=== PATIENT | female | born 1935 | race Caucasian/White ===

== ENCOUNTER → 2016-12-20 | Outpatient (CLI) | payer OTHER ==
[~2016-12-20] MED LIST: ACETAMINOPHEN PO; ALLOPURINOL300 MG PO; ANTACID650 MG PO; ANTIBIOTIC; ARTIFICIAL TEAR15 M4 OU; ASPIRIN81 M2 PO; ATARAX PO; ATORVASTATIN CA10 MG PO; AZO; AZO URINARY TR1 EACH PO; AZO1 EACH; BACITRACIN OP3.5 GM TOP; BENADRYL25 M1 PO; DICLOFENAC SOD100 MG PO; DIFLUCAN; DIFLUCAN PO; DIFLUCAN100 MG PO; DIPHENHYDRAMINE50 M1 PO; DOCUSATE SODIU100 MG PO; ELMIRON100 MG PO; EVISTA60 M1 PO; FAMOTIDINE PO; FERROUS SULFAT325 MG; FERROUS SULFATE PO; FIBER CAP PO; FLORASTOR250 M1 PO; FOLIC ACID1 MG PO; GLUCOPHAGE500 M1 PO; HYDRALAZINE HCL25 MG PO; HYDROCHLOROTHIA25 MG PO; IRON TABLETS1 TAB PO; LASIX PO; LASIX20 MG PO; LIORESAL10 MG PO; LIPITOR PO; LOTREL PO; MAPAP500 M1 PO; MAXIPIME2 GM INJ; METRONIDAZOLE250 MG PO; MYRBETRIQ50 MG PO; NASONEX17 GM; NORVASC2.5 MG PO; ONDANSETRON HCL4 MG PO; PREDNISONE10 MG PO; PRILOSEC20 M1 PO; SYNTHROID125 PO; TOPROL XL 50 MG50 MG PO; TOPROL XL100 MG PO; TRAMADOL HCL50 M1 PO; ZYRTEC PO
[2016-12-20 15:34] LABS: HEMATOCRIT 34.2 % (35.0-45.0); HEMOGLOBIN 11.2 gm/dL (12.0-16.0); MEAN CELL VOLUME 92.1 FL (83-96); MEAN CORPUSCULAR HEMOGLOBIN 30.2 PG (28-34); MEAN CORPUSCULAR HGB CONC 32.8 g/dL (30-36); MEAN PLATELET VOLUME 8.1 FL (6.5-11.5); RED BLOOD COUNT 3.72 X10e (3.90-5.30); RED CELL DISTRIBUTION WIDTH 17.2 % (11.0-15.5); WHITE BLOOD COUNT 11.9 X10e3 (4.0-10.5)
[2016-12-20 15:50] LABS: URINE APPEARANCE CLOUDY; URINE BILIRUBIN NEG (NEG); URINE BLOOD TRACE (NEG); URINE COLOR YELLOW; URINE GLUCOSE NEG (NEG); URINE KETONE NEG (NEG); URINE LEUKOCYTE ESTERASE 2+ (NEG); URINE NITRATE NEG (NEG); URINE PH 5.5 (5-8); URINE PROTEIN 3+ (NEG); URINE SPECIFIC GRAVITY 1.022 (1.003-1.035); URINE UROBILINOGEN 0.2 MG/DL (NEG)
[2016-12-20 15:53] LABS: URINE BACTERIA AUWI NEG (NEGATIVE); URINE SOURCE CLEAN CATCH; URINE SQUAMOUS EPITHELIAL CELL NONE SEEN /[HPF]; UWBCS1 AUWI 200-300 (0-5)
[2016-12-20 16:20] LABS: BUN/CREATININE RATIO 17.61; CREATININE SERUM 2.1 mg/dL (0.6-1.4); PHOSPHOROUS 3.9 mg/dL (2.5-4.6); POTASSIUM 3.8 mmol/L (3.5-5.1)
[2016-12-25 10:52] LABS: CALCIUM (PTHINTACT) 9.5 mg/dL (8.6-10.4)
== END | disposition home or self-care (01) ==
LOC: CLAB 14:56
PROVIDERS: Internal Medicine Nephrology
DX: I12.9 Hypertensive chronic kidney disease with stage 1 through stage 4 chronic kidney disease, or unspecified chronic kidney disease (principal); N18.4 Chronic kidney disease, stage 4 (severe); D63.1 Anemia in chronic kidney disease
CPT/HCPCS: 80048; 81003; 82310; 82728; 83540; 83550; 83970; 84100; 85027; 87086

== ENCOUNTER → 2017-02-09 | Day surgery (SDC) | payer OTHER ==
--- NOTE | ~2017-02-09 | OR ---
Unit #: [id number] #: [id number] Patient: LV PASTRANA [id number] [address] [place], [place] [address] [id number] O MR#: [id number] NAME: LV PASTRANA ROOM: Date of Procedure: 02/09/2017 Admission Date: 02/09/2017 Surgeon: Jose Carlos Cannon M.D. : 1935 Attending Physician: Jose Carlos Cannon M.D. Primary Care Physician: Kenny Gallagher M.D. OPERATIVE REPORT PROCEDURES PERFORMED Cystoscopy, bilateral stent exchange, right retrograde pyelogram. DESCRIPTION OF PROCEDURE After informed consent, she was taken to the operating room, placed in general anesthetic, positioned lithotomy. Her vagina and perineum were prepped and draped in the usual sterile fashion. Cystoscopy was performed showing a normal urethra. She had a stent exiting the right and left ureteral orifices. The stents did have film on them, that was somewhat of a brownish yellow film. The entire bladder was inspected, there were no tumors, no stones. Her bladder capacity was significantly diminished. The left stent was removed and exchanged initially under fluoroscopy without difficulty. I placed an 8 x 22 stent on the left. There was good coil in the bladder and collecting system. I then removed her right stent and eventually had to put a Pollack and shoot a retrograde pyelogram to confirm placement. It was more difficult placing the right stent and placed a 7 x 22 stent in the right. Hopefully, this will prolong her time to needing a stent change in the future. Her bladder was drained. She was taken to recovery. She will be discharged home, undergo stent exchange in approximately 3 to 4 months or sooner, if need be. Dictated by... Arpit Galvez/kinsey TD: 02/10/2017 13:24 JOB #: [id number] OPERATIVE REPORT Page 1 of 1 X Jose Carlos Cannon MD X PROCEDURE OPERATIVE NOTE
[2017-02-09 15:28] LABS: BASOPHIL% 0.2 % (0-2.5); EOSINOPHIL# 0.8 X10e3 (0-0.7); HEMATOCRIT 30.6 % (35.0-45.0); HEMOGLOBIN 9.8 gm/dL (12.0-16.0); LYMPHOCYTE# 4.8 X10e3 (1.0-3.5); LYMPHOCYTE% 42.6 % (17.0-45.0); MEAN CELL VOLUME 93.2 FL (83-96); MEAN CORPUSCULAR HEMOGLOBIN 29.8 PG (28-34); MEAN PLATELET VOLUME 8.9 FL (6.5-11.5); MONOCYTE% 9.4 % (3.0-12.0); NEUTROPHIL# 4.6 X10e3 (1.5-7.1); NEUTROPHIL% 40.8 % (40-75); PLATELET COUNT 239 X10e3 (140-420); RED BLOOD COUNT 3.28 X10e (3.90-5.30); RED CELL DISTRIBUTION WIDTH 17.3 % (11.0-15.5); WHITE BLOOD COUNT 11.2 X10e3 (4.0-10.5)
[2017-02-09 15:29] LABS: DIFF IND NO
[2017-02-09 15:46] LABS: BUN/CREATININE RATIO 19.35; CALCIUM SERUM 8.8 mg/dL (8.4-10.2); CREATININE SERUM 3.1 mg/dL (0.6-1.4); GLOM FILT RATE Estimated 13.3 mL/min (>60); POTASSIUM 4.9 mmol/L (3.5-5.1)
== END | disposition home or self-care (01) ==
LOC: CSUR 14:09
PROVIDERS: Urology
DX: Z46.6 Encounter for fitting and adjustment of urinary device (principal); N13.5 Crossing vessel and stricture of ureter without hydronephrosis; E03.9 Hypothyroidism, unspecified; K21.9 Gastro-esophageal reflux disease without esophagitis; E11.9 Type 2 diabetes mellitus without complications; I10 Essential (primary) hypertension; E78.5 Hyperlipidemia, unspecified; Z87.440 Personal history of urinary (tract) infections; Z90.710 Acquired absence of both cervix and uterus; Z90.49 Acquired absence of other specified parts of digestive tract; Z98.49 Cataract extraction status, unspecified eye; Z88.0 Allergy status to penicillin; Z88.8 Allergy status to other drugs, medicaments and biological substances; Z88.1 Allergy status to other antibiotic agents; Z86.2 Personal history of diseases of the blood and blood-forming organs and certain disorders involving the immune mechanism; Z79.82 Long term (current) use of aspirin; Z79.899 Other long term (current) drug therapy; Z87.891 Personal history of nicotine dependence
CPT/HCPCS: 80048; 82947; 85025; C2617; J1580; J2270; J2765; J3010

== ENCOUNTER → 2017-04-14 | Day surgery (SDC) | payer OTHER ==
--- NOTE | ~2017-04-14 | OR ---
Unit #: [id number] #: [id number] Patient: LV PASTRANA [id number] [address] [address] [id number] O MR#: [id number] NAME: LV PASTRANA. ROOM: Date of Procedure: 04/14/2017 Admission Date: 04/14/2017 Surgeon: Jose Carlos Cannon M.D. : 1935 Attending Physician: Jose Carlos Cannon M.D. Primary Care Physician: Kenny Gallagher M.D. OPERATIVE REPORT PREOPERATIVE DIAGNOSIS Bladder pain. POSTOPERATIVE DIAGNOSIS Interstitial cystitis. PROCEDURE PERFORMED Cystoscopy, hydrodistention, bilateral stent exchange, bladder biopsy. DESCRIPTION OF PROCEDURE After informed consent, she was taken to the operating room, placed under general anesthetic, and positioned lithotomy. Her vagina and perineum were prepped and draped in the usual sterile fashion. Cystoscopy was performed. She had stent exiting the right and left ureters. The stents were removed with a grasper. The bladder was distended on 3 occasions. The volumes obtained were approximately 300 mL maximum. She had a very small capacity bladder. She had glomerulations and changes consistent with chronic interstitial cystitis. A biopsy was obtained from the posterior wall. Cautery was used for hemostasis. There was nothing that looked like a bladder tumor. Nonetheless, the biopsy was sent to the lab for analysis. The new stents were placed in the right and left ureters. I downsized the stents to 5-B[place] instead of the 7-[place] stents that she had previously they were 5 x 22 stents. There was good coil in the bladder and collecting system. She tolerated the procedure well. The bladder was drained. There was no injury to the bladder. There was no bladder perforation. She was taken to recovery and will be discharged home. Return to see me as an outpatient. Dictated by... Arpit Galvez/kinsey TD: 04/28/2017 23:21 JOB #: [id number] Unit #: [id number] #: [id number] Patient: LV PASTRANA OPERATIVE REPORT Page 1 of 1 X Jose aCrlos Cannon MD PROCEDURE OPERATIVE NOTE
[2017-04-14 14:08] LABS: BASOPHIL% 0.3 % (0-2.5); EOSINOPHIL# 0.3 X10e3 (0-0.7); EOSINOPHIL% 2.3 % (0.0-7.0); HEMOGLOBIN 9.1 gm/dL (12.0-16.0); LYMPHOCYTE% 29.3 % (17.0-45.0); MEAN CELL VOLUME 104.1 FL (83-96); MEAN CORPUSCULAR HEMOGLOBIN 32.8 PG (28-34); MEAN CORPUSCULAR HGB CONC 31.5 g/dL (30-36); MEAN PLATELET VOLUME 7.7 FL (6.5-11.5); MONOCYTE# 1.2 X10e3 (0-1.0); MONOCYTE% 8.8 % (3.0-12.0); NEUTROPHIL# 8.1 X10e3 (1.5-7.1); NEUTROPHIL% 59.3 % (40-75); PLATELET COUNT 352 X10e3 (140-420); RED BLOOD COUNT 2.79 X10e (3.90-5.30); RED CELL DISTRIBUTION WIDTH 13.7 % (11.0-15.5); WHITE BLOOD COUNT 13.6 X10e3 (4.0-10.5)
[2017-04-14 14:14] LABS: DIFF IND NO
[2017-04-14 14:42] LABS: BUN/CREATININE RATIO 18.44; CALCIUM SERUM 9.1 mg/dL (8.4-10.2); CREATININE SERUM 4.5 mg/dL (0.6-1.4); GLOM FILT RATE Estimated 8.4 mL/min (>60); POTASSIUM 5.3 mmol/L (3.5-5.1)
== END | disposition home or self-care (01) ==
LOC: CSUR 10:00
PROVIDERS: Urology
DX: N30.10 Interstitial cystitis (chronic) without hematuria (principal); E11.9 Type 2 diabetes mellitus without complications; E03.9 Hypothyroidism, unspecified; I10 Essential (primary) hypertension; K21.9 Gastro-esophageal reflux disease without esophagitis; M19.90 Unspecified osteoarthritis, unspecified site; Z87.891 Personal history of nicotine dependence
CPT/HCPCS: 80048; 85025; 88305; C1877; J0690; J1100; J2405; J3010

== ENCOUNTER → 2017-05-02 | Outpatient (CLI) | payer OTHER ==
[2017-05-02 16:18] LABS: HEMATOCRIT 28.3 % (35.0-45.0); HEMOGLOBIN 8.8 gm/dL (12.0-16.0); MEAN CELL VOLUME 106.2 FL (83-96); MEAN CORPUSCULAR HEMOGLOBIN 32.9 PG (28-34); MEAN PLATELET VOLUME 6.7 FL (6.5-11.5); RED BLOOD COUNT 2.66 X10e (3.90-5.30); RED CELL DISTRIBUTION WIDTH 15.9 % (11.0-15.5); WHITE BLOOD COUNT 11.7 X10e3 (4.0-10.5)
[2017-05-02 16:58] LABS: BUN/CREATININE RATIO 19.56; CALCIUM SERUM 8.9 mg/dL (8.4-10.2); CREATININE SERUM 4.6 mg/dL (0.6-1.4); GLOM FILT RATE Estimated 8.2 mL/min (>60); POTASSIUM 5.2 mmol/L (3.5-5.1)
[2017-05-02 18:16] LABS: URINE APPEARANCE TURBID; URINE BILIRUBIN NEG (NEG); URINE BLOOD 1+ (NEG); URINE COLOR DK YELLOW; URINE GLUCOSE NEG (NEG); URINE KETONE NEG (NEG); URINE LEUKOCYTE ESTERASE 3+ (NEG); URINE NITRATE POS (NEG); URINE PROTEIN 3+ (NEG)
[2017-05-02 18:19] LABS: URINE BACTERIA AUWI NEG (NEGATIVE); URINE SQUAMOUS EPITHELIAL CELL MOD /[HPF]; UWBCS1 AUWI INNUM (0-5)
[2017-05-04 23:40] LABS: CALCIUM (PTHINTACT) 8.9 mg/dL (8.6-10.4)
== END | disposition home or self-care (01) ==
LOC: CLAB 15:43
PROVIDERS: Internal Medicine Nephrology
DX: N18.4 Chronic kidney disease, stage 4 (severe) (principal)
CPT/HCPCS: 36415; 80048; 81003; 82310; 82728; 83540; 83550; 83970; 84100; 85027; 87086

== ENCOUNTER → 2017-05-11 | Outpatient (CLI) | payer OTHER ==
[2017-05-11 10:36] LABS: HEMATOCRIT 27.6 % (35.0-45.0); HEMOGLOBIN 9.1 gm/dL (12.0-16.0)
== END | disposition home or self-care (01) ==
LOC: CSSDAY 09:51
PROVIDERS: Internal Medicine Nephrology
DX: N18.3 Chronic kidney disease, stage 3 (moderate) (principal); D63.1 Anemia in chronic kidney disease
CPT/HCPCS: 36415; 85014; 85018; 96372; J0885

== ENCOUNTER → 2017-05-19 | Outpatient (CLI) | payer OTHER ==
[2017-05-19 12:41] LABS: HEMATOCRIT 24.9 % (35.0-45.0); HEMOGLOBIN 8.2 gm/dL (12.0-16.0); MEAN CELL VOLUME 106.4 FL (83-96); MEAN CORPUSCULAR HEMOGLOBIN 35.1 PG (28-34); MEAN PLATELET VOLUME 6.4 FL (6.5-11.5); RED BLOOD COUNT 2.34 X10e (3.90-5.30); RED CELL DISTRIBUTION WIDTH 18.6 % (11.0-15.5); WHITE BLOOD COUNT 11.5 X10e3 (4.0-10.5)
[2017-05-19 13:05] LABS: BUN/CREATININE RATIO 15.51; CALCIUM SERUM 8.3 mg/dL (8.4-10.2); CREATININE SERUM 4.9 mg/dL (0.6-1.4); GLOM FILT RATE Estimated 7.6 mL/min (>60); POTASSIUM 4.2 mmol/L (3.5-5.1)
== END | disposition home or self-care (01) ==
LOC: CLAB 12:07
PROVIDERS: Surgery Vascular Surgery
DX: E11.22 Type 2 diabetes mellitus with diabetic chronic kidney disease (principal); I12.9 Hypertensive chronic kidney disease with stage 1 through stage 4 chronic kidney disease, or unspecified chronic kidney disease; N18.9 Chronic kidney disease, unspecified; E78.00 Pure hypercholesterolemia, unspecified
CPT/HCPCS: 36415; 80048; 85027

== ENCOUNTER → 2017-05-25 | Outpatient (CLI) | payer OTHER ==
[2017-05-25 10:54] LABS: BASOPHIL% 0.2 % (0-2.5); EOSINOPHIL# 0.3 X10e3 (0-0.7); EOSINOPHIL% 2.2 % (0.0-7.0); LYMPHOCYTE# 3.8 X10e3 (1.0-3.5); LYMPHOCYTE% 28.6 % (17.0-45.0); MEAN CELL VOLUME 110.1 FL (83-96); MEAN CORPUSCULAR HEMOGLOBIN 34.9 PG (28-34); MEAN CORPUSCULAR HGB CONC 31.7 g/dL (30-36); MEAN PLATELET VOLUME 6.7 FL (6.5-11.5); MONOCYTE# 1.3 X10e3 (0-1.0); MONOCYTE% 9.6 % (3.0-12.0); NEUTROPHIL% 59.4 % (40-75); PLATELET COUNT 546 X10e3 (140-420); RED BLOOD COUNT 2.35 X10e (3.90-5.30); RED CELL DISTRIBUTION WIDTH 16.8 % (11.0-15.5); WHITE BLOOD COUNT 13.4 X10e3 (4.0-10.5)
[2017-05-25 10:57] LABS: DIFF IND YES; HEMATOCRIT 26.2 % (35.0-45.0); HEMOGLOBIN 8.3 gm/dL (12.0-16.0)
[2017-05-25 11:31] LABS: PLATELET ESTIMATE INCREASED (NORMAL)
[2017-05-25 11:32] LABS: ANISOCYTOSIS SL
== END | disposition home or self-care (01) ==
LOC: CLAB 10:39
PROVIDERS: Surgery Vascular Surgery
DX: I12.9 Hypertensive chronic kidney disease with stage 1 through stage 4 chronic kidney disease, or unspecified chronic kidney disease (principal); E11.22 Type 2 diabetes mellitus with diabetic chronic kidney disease; N18.9 Chronic kidney disease, unspecified
CPT/HCPCS: 85025

== ENCOUNTER → 2017-05-25 | Outpatient (CLI) | payer OTHER ==
[2017-05-25 10:42] LABS: HEMATOCRIT 26.2 % (35.0-45.0); HEMOGLOBIN 8.3 gm/dL (12.0-16.0)
== END | disposition home or self-care (01) ==
LOC: CSSDAY 08:00
PROVIDERS: Internal Medicine Nephrology
DX: N18.3 Chronic kidney disease, stage 3 (moderate) (principal); D63.1 Anemia in chronic kidney disease; Z79.899 Other long term (current) drug therapy
CPT/HCPCS: 36415; 85014; 85018; 96372; J0885

== ENCOUNTER → 2017-06-08 | Outpatient (CLI) | payer OTHER ==
[2017-06-08 10:17] LABS: HEMATOCRIT 28.3 % (35.0-45.0)
== END | disposition home or self-care (01) ==
LOC: CSSDAY 09:47
PROVIDERS: Internal Medicine Nephrology
DX: N18.3 Chronic kidney disease, stage 3 (moderate) (principal); D63.1 Anemia in chronic kidney disease
CPT/HCPCS: 36415; 85014; 85018; 96372; J0885

== ENCOUNTER → 2017-06-22 | Outpatient (CLI) | payer OTHER ==
[2017-06-22 10:39] LABS: HEMATOCRIT 30.8 % (35.0-45.0); HEMOGLOBIN 9.9 gm/dL (12.0-16.0)
== END | disposition home or self-care (01) ==
LOC: CSSDAY 10:03
PROVIDERS: Internal Medicine Nephrology
DX: N18.3 Chronic kidney disease, stage 3 (moderate) (principal); D63.1 Anemia in chronic kidney disease; Z79.899 Other long term (current) drug therapy
CPT/HCPCS: 36415; 85014; 85018; 96372; J0885